=== PATIENT | male | born 1995 | race Caucasian/White ===

== ENCOUNTER 2018-05-08 06:22 | Emergency (ER) | payer SELFPAY ==
[2018-05-08 06:25] VITALS: BP 132/74
--- NOTE | 2018-05-08 06:36 | ER Report ---
History and Physical Time Seen By MD: 06:29 Hx. of Stated Complaint: fell trying to fix a gutter, caught arm on the sheet metal HPI/ROS CHIEF COMPLAINT: Left forearm laceration HISTORY OF PRESENT ILLNESS: 22-year-old male smoker who was outside doing a cigarette. His gutter on his house was loose. He was messing with it when he fell and the gutter came down on his left arm, sustaining a laceration to the proximal forearm approximately 2.6 cm transversely into the muscle belly. Patient thinks his last tetanus shots greater than 10 years. Patient shows good function of his left hand. Allergies: Coded Allergies: No Known Drug Allergies (Unverified , 05/08/18) Home Meds No Active Prescriptions or Reported Meds Hx Substance Use Disorder: No Hx Alcohol Use: Yes (social) Constitutional Vital Sign - Last 24 Hours 05/08/18 06:25 Temp 99.4 Pulse 63 Resp 16 B/P (MAP) 132/74 Pulse Ox 97 O2 Delivery Room Air Physical Exam General appearance: Alert no distress. Respiratory: Chest is non tender, lungs are clear to auscultation. Cardiac: Regular rate and rhythm Extremities: Examination of the left arm reveals a neurovascularly intact left arm. There is a 2.6, 70 laceration to the proximal forearm musculature that extends into the muscle belly. All distal tendon function appears intact. All distal neurovascular function appears intact. DIFFERENTIAL DIAGNOSIS: After history and physical exam differential diagnosis was considered for left arm laceration, muscle laceration, tendon injury, radial nerve injury Medical Decision Making ED Course/Re-evaluation ED Course Procedure: Laceration repair. Verbal consent was obtained from the patient. The 2.6 cm laceration on the left proximal forearm was anesthetized in the usual fashion. The wound was scrubbed, draped and explored to its base with a gloved finger. There were no foreign bodies noted. It was laceration extending into the muscle belly no tendon injury was identified. The wound was repaired with 4-0 Prolene sutures 4. The wound repair was simple. The procedure was performed by myself. Wound care was discussed, patient was given a tetanus booster. Patient advised suture removal in 12 days. Decision to Disposition Date: May 08, 2018 Decision to Disposition Time: 06:35 Depart Departure Latest Vital Signs Vital Signs Date Time Temp Pulse Resp B/P (MAP) Pulse Ox O2 Delivery O2 Flow Rate FiO2 6/18/18 06:25 99.4 63 16 132/74 97 Room Air Impression: Primary Impression: Laceration of left upper arm Condition: Improved Disposition: HOME OR SELF-CARE New Scripts No Active Prescriptions or Reported Meds Patient Instructions: Laceration (ED) Additional Instructions: Perform daily wound care Have your sutures removed in 12 days Problem Qualifiers Primary Impression: Laceration of left upper arm Encounter type: initial encounter Qualified Codes: S41.112A - Laceration without foreign body of left upper arm, initial encounter MIKAELA JOHNSON DO May 08, 2018 06:36
[2018-05-08] MEDS ORDERED: DIPHTH/TETANUS/ACEL. PERTUSSIS IM ONLY ONE (06:40)
== END 2018-05-08 07:00 | disposition home or self-care (01) ==
LOC: ER 06:29
DX: S51.812A Laceration without foreign body of left forearm, initial encounter (principal); W26.8XXA Contact with other sharp object(s), not elsewhere classified, initial encounter
CPT/HCPCS: 90471; 90715; 99283